=== PATIENT | female | born 1970 | race Caucasian/White ===

== ENCOUNTER 2024-12-27 14:32 | Emergency (ER) | payer OTHER, SELFPAY ==
[2024-12-27 14:36] VITALS: BP 173/97; PULSE 105; RESP 21; TEMP 37.1; O2SAT 97; BMI 44.2
[2024-12-27] MEDS: 0.9% Normal Saline (1000mL) 1,000 ML 999 ML IV (15:24)
[2024-12-27 15:35] VITALS: BP 155/107; PULSE 90; RESP 19; O2SAT 97
[2024-12-27 15:36] LABS: Hematocrit 40.1 % (37-47); Hemoglobin 13.9 g/dL (12.0-15.0); Immature Granulocytes Count 0.230 X10^3/uL (0.0-0.0); Mean Corp Hgb Conc 34.7 g/dL (32-36); Mean Corpuscular Volume 91.3 fL (81-99); Mean Platelet Vol. 9.0 fl (6.2-12.0); NRBC Flagged by Analyzer 0 % (0-5); Platelet Count 292 K/mm3 (150-450); RBC Distribution Width CV 12.5 % (11.6-14.6); RBC Distribution Width SD 41.8 fl (35.1-43.9); Red Blood Count 4.39 M/mm3 (4.2-5.4); White Blood Count 11.8 K/mm3 (4.4-11.0)
[2024-12-27 15:49] LABS: Mucous, Urine 0 SEEN /hpf (<or=2+)
[2024-12-27 15:53] LABS: Color, Urine Yellow (Yellow); Glucose, Dipstick Normal (Normal); Ketone-Dipstick 5 mg/dl (Negative); Leukocyte Esterase-Dipstick Negative /ul (Negative); Nitrite-Dipstick Negative (Negative); Occult Blood-Urine 50 /ul (Negative); Protein-Dipstick 30 mg/dl (Negative); Specific Gravity, Urine 1.025 (1.002-1.030); Urine Bilirubin Dipstick Negative (Negative)
[2024-12-27 16:00] VITALS: BP 155/95; PULSE 80; RESP 16; O2SAT 98
[2024-12-27 16:00] LABS: Red Blood Cells-Urine 0-5 SEEN /hpf (0-5); Squamous Epithelial Cells - UA 5-10 SEEN /hpf (5-10)
[2024-12-27 16:06] LABS: AST(SGOT) 27 U/L (<=31); Alanine Aminotransfer ALT/SGPT 22 U/L (<=34); Albumin, Serum 4.3 g/dL (3.5-5.0); Alkaline Phosphatase 66 U/L (35-104); Anion Gap 16 (5-15); BUN 19 mg/dL (4-19); BUN/Creat Ratio 20.8 RATIO (10-20); Calcium,Total 9.7 mg/dL (7.6-11.0); Carbon Dioxide 20.2 mmol/L (21.0-32.0); Chloride 102 mmol/L (98-108); Estimated Creatinine Clearance 92.03 ml/min (50-250); Globulin 3.6 g/dL (2.2-4.2); Glucose 150 mg/dL (70-99); Lipase 102 U/L (13-75); Potassium 4.1 mmol/L (3.3-5.1)
[2024-12-27 17:00] VITALS: BP 140/99; PULSE 76; RESP 14; O2SAT 97
[2024-12-27] MEDS: Orphenadrine 60 MG/2 ML Ampul 30 MG IV (17:30)
[2024-12-27 17:33] VITALS: BP 148/87; PULSE 74; RESP 15; TEMP 36.7; O2SAT 94
== END 2024-12-27 18:44 | disposition home or self-care (01) ==
PROVIDERS: Emergency Provider Emergency Medicine; Visit Provider Emergency Medicine
DX: R56.9 Unspecified convulsions (principal); R22.0 Localized swelling, mass and lump, head; I10 Essential (primary) hypertension; R22.1 Localized swelling, mass and lump, neck; Z87.891 Personal history of nicotine dependence; E78.00 Pure hypercholesterolemia, unspecified; R25.2 Cramp and spasm; R93.0 Abnormal findings on diagnostic imaging of skull and head, not elsewhere classified
CPT/HCPCS: 70450; 80053; 81001; 83690; 85025; 87077; 87086; 87088; 93005; 96361; 96374; 96375; 99284; A4216; J2405